=== PATIENT | male | born 1990 | race Caucasian/White ===

== ENCOUNTER 2019-07-27 22:50 | Emergency (ER) | payer OTHER ==
[2019-07-28 00:16] VITALS: TEMP 99.3; BMI 29.2
[2019-07-28] MEDS ORDERED: PENICILLIN G BENZATHINE 1,200,000 UNIT/2 ML PFS IM ONE ×2 (01:20→01:26)
[2019-07-28] MEDS ORDERED: IBUPROFEN 600 MG TABLET (FP) PO ONE ×2 (01:21→01:23)
--- NOTE | 2019-07-28 02:38 | PDOC ---
Documentation entered by Berta Charles SCRIBE, acting as scribe for Laura Abreu MD. Laura Abreu MD: This documentation has been prepared by the aubreyeMelvin Maria, SCRIBE, under my direction and personally reviewed by me in its entirety. I confirm that the documentation accurately reflects all work, treatment, procedures, and medical decision making performed by me. History of Present Illness - General Chief Complaint: Cold Symptoms Stated Complaint: FEVER Time Seen by Provider: 07/28/19 00:38 History Source: Patient Exam Limitations: No Limitations - History of Present Illness Initial Comments: 07/28/19 01:33 The patient is a 29 year old male with a past medical history of C-spine surgery with residual sensory deficits here today for evaluation of right flank pain and vomiting. The patient reports that he woke up this morning around 3 AM with right flank pain that radiates down his leg. He also notes some nausea, vomiting, and fever. He reports that his has strep throat. Patient denies headache, lightheadedness. Denies chills. Denies chest pain, shortness of breath. Denies nausea, vomiting, diarrhea, abdominal pain. Allergies: NKA Social history: denies tobacco use Past History - Past Medical History Allergies/Adverse Reactions: Allergies Allergy/AdvReac Type Severity Reaction Status Date / Time No Known Allergies Allergy Verified 07/28/19 00:15 Home Medications: Ambulatory Orders Ibuprofen [Motrin -] 600 mg PO TID #21 tablet 07/28/19 - Psycho Social/Smoking Cessation Hx Smoking History: Never smoked Hx Alcohol Use: No Drug/Substance Use Hx: No Review of Systems - Review of Systems Comments:: 07/28/19 01:33 GENERAL/CONSTITUTIONAL: No fever or chills. No weakness. HEAD, EYES, EARS, NOSE AND THROAT: No change in vision. No ear pain or discharge. No sore throat. CARDIOVASCULAR: No chest pain or shortness of breath. RESPIRATORY: No cough, wheezing, or hemoptysis. GASTROINTESTINAL: +nausea. +vomiting. No diarrhea or constipation. GENITOURINARY: No dysuria, frequency, or change in urination. MUSCULOSKELETAL: +right flank pain. No joint or muscle swelling or pain. No neck pain. SKIN: No rash NEUROLOGIC: No headache, vertigo, loss of consciousness, or change in strength/ sensation. ENDOCRINE: No increased thirst. No abnormal weight change. HEMATOLOGIC/LYMPHATIC: No anemia, easy bleeding, or history of blood clots. ALLERGIC/IMMUNOLOGIC: No hives or skin allergy. *Physical Exam - Vital Signs Last Vital Signs Temp Pulse Resp BP Pulse Ox 99.3 F 103 H 19 106/54 L 96 07/27/19 22:50 07/27/19 22:50 07/27/19 22:50 07/27/19 22:50 07/27/19 22:50 - Physical Exam Comments: 07/28/19 01:33 GENERAL: Awake, alert, and fully oriented, in no acute distress HEAD: No signs of trauma EYES: PERRLA, EOMI, sclera anicteric, conjunctiva clear ENT: +tonsillar edema, erythema, and exudates. Auricles normal inspection, hearing grossly normal, nares patent. Moist mucosa NECK: Normal ROM, supple, no lymphadenopathy, JVD, or masses LUNGS: Breath sounds equal, clear to auscultation bilaterally. No wheezes, and no crackles HEART: Regular rate and rhythm, normal S1 and S2, no murmurs, rubs or gallops ABDOMEN: Soft, nontender, normoactive bowel sounds. No guarding, no rebound. No masses EXTREMITIES: Normal range of motion, no edema. No clubbing or cyanosis. No cords, erythema, or tenderness NEUROLOGICAL: Cranial nerves II through XII grossly intact. Normal speech, normal gait SKIN: Warm, Dry, normal turgor, no rashes or lesions noted. ED Treatment Course - Medications Given in the ED: ED Medications Discontinued Medications Generic Name Dose Route Start Last Admin Trade Name Michael PRN Reason Stop Dose Admin Ibuprofen 600 mg 07/28/19 01:21 07/28/19 01:27 Motrin - PO 07/28/19 01:22 600 mg ONCE ONE Administration Medical Decision Making - Medical Decision Making 07/28/19 05:53 Pt has clear exuidates bilaterally, that there is no reason to get a strep test. Pt will be treated empirically. Discharge - Discharge Information Problems reviewed: Yes Clinical Impression/Diagnosis: Strep throat Condition: Stable Disposition: HOME - Admission No - Additional Discharge Information Prescriptions: Ibuprofen [Motrin -] 600 mg PO TID #21 tablet - Follow up/Referral - Patient Discharge Instructions Patient Printed Discharge Instructions: DI for Strep Throat - Post Discharge Activity Work/Back to School Note: Back to Work
[2019-07-28 02:55] VITALS: BP 125/63; PULSE 95
== END 2019-07-28 02:55 | disposition home or self-care (01) ==
LOC: JER 22:50
DX: J02.0 Streptococcal pharyngitis (principal)
CPT/HCPCS: 99282-25